=== PATIENT | female | born 2000 | race Caucasian/White ===

== ENCOUNTER 2025-03-19 09:47 | Outpatient (CLI) | payer OTHER, SELFPAY ==
--- NOTE | ~2025-03-19 | US_ITS ---
EXAMINATION: US pelvic complete w TV INDICATION: Left-sided pelvic pain Comparison:No prior studies for comparison. TECHNIQUE: Multiple transabdominal and endovaginal sonographic images of the pelvis performed. FINDINGS: The uterus measures 7.2 x 4.7 x 3.6 cm. The endometrial complex measures 4 mm. The right ovary measures 2.1 x 2.2 x 1.5 cm and the left ovary measures 1.8 x 1.4 x 1.2 cm.. There a re small follicles in each ovary. Normal doppler signal in both ovaries. There is no free fluid in the pelvis. There are no abnormal masses seen on either side. IMPRESSION: 1. Unremarkable pelvic ultrasound. Reviewed, dictated and finalized at location A.
--- OUTSIDE RECORDS SUMMARY | 2025-03-19 09:58 | XMS_ITS | Encounter Summary ---
Author Organization [facility] Address [address] [place] [address] Care Team Providers Care Consumer Services Consultant Name Role Phone Jose Martinez MD Primary Care Provider Reason for Visit * Reason Onset Date Comments Question 08/01/2017 Encounter Details Date Type Department Care Team (Late st Contact Info) Description 08/01/[address] [address] Morgan Hernandez MD [address] [place] [id number] Question Social History Tobacco Use Types Packs/Day Years Used Date Smoking Tobacco: Never Smokeless Tobacco: Never Comments No Sex and Gender Information Value Date Recorded Sex Assigned at Not on file Legal Sex Female 5:44 AM SVP MARKETING Gender Identity Not on file Sexual Orientation Not on file documented as of this encounter Functional Status * Is person deaf or have serious hearing difficulty? Answer Date of Assessment Author No 07/27/2017 2:35 PM Kate Mccann RN * Is person blind or have serious difficulty seeing? Answer Date of Assessment Author No 07/27/2017 2:35 PM Kate Mccann, MORE * Does person have serious difficulty walking/climbing stairs? Answer Date of Assessment Author No 07/27/2017 2:35 PM aKte Mccann RN * Does person have difficulty dressing/bathing? Answer Date of Assessment Author No 07/27/2017 2:35 PM SVP MARKETING Kate La RN * Does person have difficulty doing errands alone? Answer Date of Assessment Author No 07/27/2017 2:35 PM SVP MARKETING Kate La RN documented as of this encounter Mental Status * Does person have difficulty concentrating/remembering/making decisions? Answer Entry Date Author No 07/27/2017 2:35 PM SVP MARKETING Kate La RN documented in this encounter Miscellaneous Notes * Telephone Encounter - Portia Joyce RN - 08/01/2017 2:06 PM SVP MARKETING Mom is referring to the periactin that was offered to pt per Dr Hernandez's note earlier today. Orderentered to be escribed to requested pharmacy, Dr Hernandez is out of the office, will ask Dr Travon [facility]. MARKETING * Telephone Encounter - Camilla Sage - 08/01/2017 12:39 PM CST Mom is requesting medication for stomach pain. Please send to [facility]. MARKETING documented in this encounter Plan of Treatment Not on file documented as of this encounter Visit Diagnoses Not on filedocumented in this encounter Care Teams Consumer Services Consultant Relationship Specialty Start Date End Date Jose Martinez MD PCP - General Family Medicine 07/17/17 documented as of this encounter
--- OUTSIDE RECORDS SUMMARY | 2025-03-19 09:58 | XMS_ITS | Clinical Summary ---
Author Organization [facility] Address [address] [place] [id number] Care Team Providers Care Racing Secretary Name Role Phone None, Provider MD Primary Care Provider Unavaila ble Social History Tobacco Use Types Packs/Day Years Used Date Smoking Tobacco: Never Assessed Comments Unknown Sex and Gender Information Value Date Recorded Sex Assigned at Not on file Legal Sex Female 8:24 PM CDT Gender Identity Not on file Sexual Orientation Not on file Plan of Treatment Health Maintenance Due Date Last Done Comments Cervical Cancer Screening Pa p Smear (Age 21 to 29) Every 3 Years 2000 Cervical Cancer Screening 2000 Annual Physical 10/24/2003 HPV Vaccines (1 - 3-dose series) 10/24/2015 Hepatitis C 2018 DTaP, Tdap and Td Vaccines ( 1 - Tdap) 10/24/2019 Hepatitis B Vaccines (1 of 3 - 19+ 3-dose series) 10/24/2019 COVID-19 Vaccine (3 - 2023-2 5 season) 2024 12/14/2020, 11/04/2020 Meningococcal B Vaccine Aged Out No l onger eligible based on patient's age to complete this topic Meningococcal Vaccine Aged Out No raymond rebecca eligible based on patient's age to complete this topic Pneumococcal Vaccine: Pediatrics (0 to 5 Years) and At-Risk Patients (6 to 49 Years) Aged Out No longer eligible b ased on patient's age to complete this topic RSV Immunizations Under 20 Months Aged Out No longer eligible b ased on patient's age to complete this topic Care Teams Racing Secretary Relationship Specialty Start Date End Date None, Provider, PCP - General 02/28/21
--- OUTSIDE RECORDS SUMMARY | 2025-03-19 09:58 | XMS_ITS | Clinical Summary ---
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
--- OUTSIDE RECORDS SUMMARY | 2025-03-19 09:58 | XMS_ITS | Encounter Summary ---
Author Organization [employer] Address [address] [facility] Attn: [place] [address] Care Team Providers Care Diesel Technician Mechanic Name Role Phone Talon Parsons MD Primary Care Provider Encounter Details Date Type Department Care Team (Late st Contact Info) Description 2000 Inpatient Historical Arash Gutierrez MD [address] [address] Talon Parsons MD [address] [address] Single liveborn, born in hospital, delivered without mention of delivery (Primary Dx) Social History Tobacco Use Types Packs/Day Years Used Date Smoking Tobacco: Never Assessed Comments Unknown Sex and Gender Information Value Date Recorded Sex Assigned at Not on file Legal Sex Female 4:06 AM TRAINING DEVELOPMENT DIRECTOR Gender Identity Not on file Sexual Orientation Not on file documented as of this encounter Plan of Treatment Not on file documented as of this encounter Visit Diagnoses Diagnosis Single liveborn, born in hospital, delivered without mention of delivery- Primary documented in this encounter Care Teams Diesel Technician Mechanic Relationship Specialty Start Date End Date Talon Parsons MD [address] [address] PCP - General 00 documented as of this encounter
--- OUTSIDE RECORDS SUMMARY | 2025-03-19 09:58 | XMS_ITS | Clinical Summary ---
Author Organization [facility] Address [address] [facility] [place] [address] Care Team Providers Care Grade Tamper Name Role Phone Jose Martinez MD Primary Care Provider Source Comments [facility],non-owned Affiliates and Associated Physician Practices is amultiple site organization consisting of ambulatory clinics and hospital sitesin [place], [place], [place] and [place]. This disclosure is being madepursuant to the Care Everywhere program and may not contain all information available regarding this patient. Last updated 18.[facility] Allergies Active Allergy Reactions Criticality Noted Date Comments Penicillins 10/31/2010 Hives facial sweling Medications * Be aware that medications may not be up to date on this document. Alwaysverify current medications with the patient. acetaminophen (TYLENOL) 325 MG tabletIndicati ons:Last pm Take 325 mg by mouth every 4 hours as needed. Maximum allowable Acetaminophen amount = 4 Grams / 24 hours. Indications: Last pm Active ibuprofen (MOTRIN) 200 MG tablet Take 200 mg by mouth every 6 hours as needed. Last dose 0800 Active spironolactone (ALDACTONE) 100 MG tablet Take 125 mg by mouth once daily Active norgestim-eth estrad triphasic (TRI-LINYAH) tablet Take 1 tablet by mouth once daily Active omeprazole (PRILOSEC) 40 MG capsule Take 40 mg by mouth once daily Active cyproheptadine (PERIACTIN) 4 MG tablet Take 1 tablet by mouth at bedtime 30 tablet 3 7 Active Active Problems Problem Noted Date Diagnosed Date Abdominal pain 07/17/2017 Weight loss 07/17/2017 Acne 07/17/2017 Lactose intolerance 07/17/2017 Social History Tobacco Use Types Packs/Day Years Used Date Smoking Tobacco: Never Smokeless Tobacco: Never Comments No Sex and Gender Information Value Date Recorded Sex Assigned at Not on file Legal Sex Female 5:44 AM CABIN CREW Gender Identity Not on file Sexual Orientation Not on file Last Filed Vital Signs Vital Sign Reading Time Taken Comments Blood Pressure 116/60 07/27/2017 2:15 PM CABIN CREW Pulse 74 07/27/2017 2:15 PM CABIN CREW Temperature 36.7 C (98 F) 07/27/2017 1:15 PM CABIN CREW Respiratory Rate 20 07/27/2017 2:15 PM CABIN CREW Oxygen Saturation 100% 07/27/2017 2:15 PM CABIN CREW Inhaled Oxygen Concentration - - Weight 54.7 kg (120 lb 9.5 oz) 07/27/2017 12:22 PM CABIN CREW Height 163.5 cm (5' 4.37) 07/27/2017 12:[address] Body Mass Index 20.46 07/27/2017 12:20 PM CABIN CREW Plan of Treatment Health Maintenance Due Date Last Done Comments HIV SCREENING 10/24/2015 HPV VACCINE (1 - 3-dose series) 10/24/2015 CHLAMYDIA/GONORRHEA SCREENING 2016 HEPATITIS C SCREENING 10/19/2018 DTAP/TDAP/TD VACCINES (1 - Tdap) 10/24/2019 HEPATITIS B VACCINE (1 of 3 - 19+ 3-dose series) 10/24/2019 COVID-19 VACCINE (1 - 2023-2 5 season) 2024 DEPRESSION SCREENING 08/07/2024 INFLUENZA VACCINE (#1) 2025 ZOSTER VACCINE (1 of 2) 2050 HIB VACCINE Aged Out No longer eligi ble based on patient's age to complete this topic MENINGOCOCCAL (Group B) VACC INE SHARED DECISION-MAKING Aged Out No longer eligibl e based on patient's age to complete this topic MENINGOCOCCAL GROUPS A/C/Y/W VACCINE Aged Out No longer eligible b ased on patient's age to complete this topic PNEUMOCOCCAL VACCINE Aged Out No long er eligible based on patient's age to complete this topic Insurance [employer] Care Teams Grade Tamper Relationship Specialty Start Date End Date Jose Martinez MD PCP - General Family Medicine 07/17/17
== END 2025-03-19 09:48 | disposition home or self-care (01) ==
PROVIDERS: Visit Provider Obstetrics & Gynecology
DX: R10.2 Pelvic and perineal pain (principal)
CPT/HCPCS: 76830; 76856